=== PATIENT | male | born 1970 | race Caucasian/White ===

== ENCOUNTER 2016-10-11 19:11 | Emergency (ER) | payer OTHER ==
[2016-10-11] MEDS ORDERED: NovoLIN R IV ONE ×2 (19:28→20:35)
[2016-10-11] MEDS ORDERED: Sodium Chloride 0.9% 1000 ML 1,000 ML IV STA ×3 (19:28→21:01)
[2016-10-11] MEDS ORDERED: Phenergan 25 MG INJ IV ONE (19:32)
[2016-10-11] MEDS ORDERED: Phenergan 25 MG INJ ONE (19:47)
[2016-10-11] MEDS ORDERED: NovoLIN R ONE ×3 (19:48→21:09)
[2016-10-11] MEDS ORDERED: Sodium Chloride 0.9% 1000 ML 1,000 ML ONE ×3 (19:48→21:32)
[2016-10-11 19:53] LABS: Mean Cell Volume 88.8 fl (78-100); Mean Corpuscular Hemoglobin 31.6 pg (26-32); Mean Platelet Volume 12.7 fl (6-9.5); Platelet Count 305 K/mm3 (150-450); Red Blood Count 4.37 M/mm3 (4.1-5.6); White Blood Count 15.1 K/mm3 (4.0-10.5)
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
[2016-10-11 20:07] LABS: LIPASE 262 U/L (73-393)
[2016-10-11 20:13] LABS: ALBUMIN 3.9 g/dL (3.4-5.0); ANION GAP 19.9 MEQ/L (5-15); BILIRUBIN,TOTAL 0.4 mg/dL (0.2-1.0); Carbon Dioxide 20.4 mEq/L (21-32); MAGNESIUM 1.9 mg/dL (1.8-2.4); Potassium 4.5 mEq/L (3.5-5.1); Total Protein 7.8 gm/dL (6.4-8.2)
[2016-10-11 20:18] LABS: Lactic Acid 3.1 (0.4-2.0)
[2016-10-11 20:34] LABS: A-aADO2 23; ARTERIAL BLOOD GAS BASE EXCESS -3.7 (-2.0-2.0); ARTERIAL BLOOD GAS FIO2 21 %; ARTERIAL BLOOD GAS PO2 89 mmHg (75-100); ARTERIAL BLOOD GAS pH 7.42 (7.35-7.45)
[2016-10-11 20:35] LABS: ALLEN TEST OK? YES
[2016-10-11] MEDS ORDERED: NOVOLIN R INSULIN (FOR DRIPS)** 100 UNITS in Sodium Chloride 0.9% 100 ML IVPB 100 ML IV SCH (21:00)
[2016-10-11] MEDS ORDERED: Sodium Chloride 0.9% 100 ML IVPB 100 ML IV ONE ×2 (21:09→21:14)
[2016-10-11] MEDS ORDERED: ROCEPHIN 1 Gm-D5w 50 ml Bag** 1 G/50 ML IVPB IV STA (21:09)
[2016-10-11] MEDS ORDERED: MORPHINE SULFATE 2 MG INJ IV ONE (21:14)
[2016-10-11] MEDS ORDERED: MORPHINE SULFATE 2 MG INJ ONE (21:18)
[2016-10-11 21:22] LABS: Collection Type CLEAN CATCH
[2016-10-11 21:23] LABS: ADD URINE CULTURE? NO (NO); Bilirubin NEGATIVE (NEGATIVE); Blood NEGATIVE Ery/ul (0-5); COMPLETE URINE MICROSCOPIC? NO; Glucose 1000 mg/dL (NEGATIVE); Leukocyte Esterase NEGATIVE (NEGATIVE)
[2016-10-11] MEDS ORDERED: ROCEPHIN 1 Gm-D5w 50 ml Bag** 1 G/50 ML IVPB IV ONE (21:32)
[2016-10-11 21:54] LABS: Lactic Acid 5.2 (0.4-2.0)
[2016-10-11 22:22] LABS: ANION GAP 18.4 MEQ/L (5-15); Carbon Dioxide 21.6 mEq/L (21-32); Potassium 3.7 mEq/L (3.5-5.1)
[2016-10-11 22:32] LABS: Eosinophil 1 % (0.00-3.0); Total Cells Counted 100
[2016-10-11 22:33] LABS: Platelet Estimate NORMAL (NORMAL)
[2016-10-11 22:46] VITALS: BP 102/78; PULSE 92; O2SAT 97
[2016-10-12] MEDS ORDERED: NovoLIN R ONE (03:08)
== END 2016-10-11 22:25 | disposition short-term general hospital (02) ==
LOC: ED 19:11
DX: N17.9 Acute kidney failure, unspecified (principal); E87.1 Hypo-osmolality and hyponatremia; R73.9 Hyperglycemia, unspecified; E11.9 Type 2 diabetes mellitus without complications; B19.20 Unspecified viral hepatitis C without hepatic coma; J44.9 Chronic obstructive pulmonary disease, unspecified; M10.9 Gout, unspecified
CPT/HCPCS: 36000; 36415; 36600; 80048; 80053; 81002; 82150; 82375; 82803; 82962; 83605; 83690; 83735; 85025; 87040; 87086; 96360; 96361; 96365; 96366; 96367; 96368; 96374; 96375; 96376; 99285; J0696; J1815; J2270; J2550; A9270-GY